=== PATIENT | female | born 1990 | race Caucasian/White ===

== ENCOUNTER 2016-12-17 15:31 | Emergency (ER) | payer OTHER ==
[2016-12-17] MEDS ORDERED: MOTRIN PO ONE (17:21)
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
[2016-12-17 19:44] VITALS: BP 122/70
== END 2016-12-17 20:08 | disposition home or self-care (01) ==
LOC: ED 15:31
DX: M54.2 Cervicalgia (principal); R07.9 Chest pain, unspecified; M54.6 Pain in thoracic spine; J45.909 Unspecified asthma, uncomplicated; V89.2XXA Person injured in unspecified motor-vehicle accident, traffic, initial encounter; Y93.89 Activity, other specified; Y99.9 Unspecified external cause status; Y92.410 Unspecified street and highway as the place of occurrence of the external cause
CPT/HCPCS: 71020; 72040; 72070; 93005; 93010